=== PATIENT | female | born 1990 | race Caucasian/White ===

== ENCOUNTER 2021-01-31 05:33 | Outpatient (RCR) | payer BC ==
[~2021-01-31] VITALS: Ht 160 cm; Wt 84.0 kg
[~2021-01-31 05:33] MED LIST: MULT-974 PO; PANT40SU PO
== END 2021-01-31 14:10 | disposition home or self-care (01) ==
LOC: PREOP 05:33
PROVIDERS: ATTEND Surgery
DX: Z01.812 Encounter for preprocedural laboratory examination (principal); K21.9 Gastro-esophageal reflux disease without esophagitis; Z20.822 Contact with and (suspected) exposure to COVID-19
CPT/HCPCS: 87635

== ENCOUNTER 2021-02-04 09:04 | Day surgery (SDC) | payer BC ==
[~2021-02-04] VITALS: Ht 160 cm; Wt 84.0 kg
[2021-02-04] MEDS ORDERED: LACTATED RINGERS 1,000 ML IV ONE (09:06)
[2021-02-04 09:30] VITALS: BP 122/76
[2021-02-04] MEDS ORDERED: LACTATED RINGERS 1,000 ML IV SCH (09:45)
[2021-02-04] MEDS ORDERED: PROPOFOL INJECTION 50 ML IV ONE (09:52)
[2021-02-04] MEDS ORDERED: MIDAZOLAM 2 MG/2 ML (VERSED) VIAL ONE (09:53)
--- NOTE | 2021-02-04 09:58 | Progress Note-Pre Operative ---
Pre-Operative Progress Note H&P Reviewed The H&P was reviewed, patient examined and no changes noted. Date Seen by Provider: Feb 04, 2021 Time Seen by Provider: 09:57 Date H&P Reviewed: Feb 04, 2021 Time H&P Reviewed: 09:58 Pre-Operative Diagnosis: gerd, dysphagia LORIE LOWE DO Feb 04, 2021 09:58
[2021-02-04 10:15] VITALS: BP 101/56
--- NOTE | 2021-02-04 10:15 | Progress Note-Post Operative ---
Post-Operative Progess Note Surgeon (s)/Safety Representative (s) Surgeon LORIE LOWE DO Safety Representative: na Pre-Operative Diagnosis gerd, dysphagia Post-Operative Diagnosis reflux esophagitis Procedure & Operative Findings Date of Procedure 02/04/21 Procedure Performed/Findings egd c biopsies Anesthesia Type per loading machine operator helper Estimated Blood Loss Estimated blood loss (mL): none Specimens/Packing Specimens Removed antrum, ge LORIE LOWE DO Feb 04, 2021 10:15
[2021-02-04] MEDS ORDERED: SUCR1TAB36 PO ×2 (10:16→10:25)
--- NOTE | 2021-02-04 10:16 | Discharge Inst-Simple/Standard ---
Discharge Inst-Standard Discharge Medications New, Converted or Re-Newed RX: RX on Chart Patient Instructions/Follow Up Plan of Care/Instructions/FU: 3 weekS Diane Activity as Tolerated: Yes Discharge Diet: Regular Diet LORIE LOWE DO Feb 04, 2021 10:16
[2021-02-04 10:20] VITALS: BP 103/55
[2021-02-04 10:25] VITALS: BP_SYST 104; BP_SYST 105; BP_DIAS 60; BP_DIAS 61
[2021-02-04 10:55] VITALS: BP 107/70
[2021-02-04 11:13] VITALS: BP 107/70
--- NOTE | 2021-02-04 13:56 | OPERATIVE REPORT ---
DATE OF SERVICE: 02/04/2021 PREOPERATIVE DIAGNOSES: Dysphagia and gastroesophageal reflux disease. POSTOPERATIVE DIAGNOSES: Reflux esophagitis. PROCEDURE PERFORMED: EGD with biopsy. SURGEON: Lorie Contreras DO. ANESTHESIA: Per BUSINESS PERFORMANCE ANALYST. ESTIMATED BLOOD LOSS: None. COMPLICATIONS: None. SPECIMENS: Antrum, GE junction. INDICATIONS FOR PROCEDURE: The patient is a 30-year-old female with some difficulty swallowing and reflux symptoms. She understands the risks and benefits of the procedure and wished to proceed with the procedure. Consent was signed in the chart. DESCRIPTION OF PROCEDURE: The patient was taken to the endoscopy suite and placed in a left lateral recumbent position. Timeout was performed. Scope was inserted in the mouth, down the esophagus, stomach and into the duodenum without difficulty. There were no polyps, masses or ulcerations within the duodenum. Scope was slowly retracted back into the stomach, where it was further insufflated. Some slight erythematous changes, no polyps, masses or ulcerations. Biopsy of the antrum was obtained. Scope was retroflexed noting no other pathology. Scope was returned to its normal position, slowly withdrawn to the distal esophagus. Slight changes of reflux esophagitis present. Biopsy of the GE junction was obtained. Scope was then slowly retracted back until completely removed, noting no other pathology. The patient tolerated the procedure well without any complications. She was taken to the recovery room in stable condition. RECOMMENDATIONS: The patient will continue on Protonix. We will add Carafate 1 gram four times a day. We will have her follow up in two to three weeks to go over biopsy results. If continues to have dysphagia symptoms, we will also consider getting a barium swallow esophagram. Job ID: [id number] DocumentID: [id number] Dictated Date: 02/04/2021 10:23:53 Black Studies Professor Date: 02/04/2021 13:56:09 Dictated By: LORIE CONTRERAS DO [facility]
--- NOTE | 2021-02-04 14:21 | Anesthesia-General Post-Op ---
MAC Patient Condition Mental Status/LOC: Same as Preop Cardiovascular: Satisfactory Nausea/Vomiting: Absent Respiratory: Satisfactory Pain: Controlled Complications: Absent Post Op Complications Complications None Follow Up Care/Instructions Patient Instructions None needed. Anesthesiology Discharge Order Discharge Order Patient is doing well, no complaints, stable vital signs, no apparent adverse anesthesia problems. No complications reported per nursing. JACOB GARCIA CRNA Feb 04, 2021 14:21
== END 2021-02-04 11:14 ==
LOC: ENDO 09:04
PROVIDERS: ATTEND Surgery
DX: K21.00 Gastro-esophageal reflux disease with esophagitis, without bleeding (principal); K29.50 Unspecified chronic gastritis without bleeding; Z79.899 Other long term (current) drug therapy
CPT/HCPCS: 84703; 88305; 88342